=== PATIENT | male | born 1990 | race Caucasian/White ===

== ENCOUNTER 2023-06-08 13:23 | Emergency (ER) | payer OTHER ==
[2023-06-08 13:33] VITALS: RESP 16
[2023-06-08] MEDS ORDERED: KETOROLAC 15 MG/ML 1 ML VIAL IM STA (14:04)
--- NOTE | 2023-06-08 15:39 | US ---
EXAMINATION TYPE: US venous doppler duplex LE LT DATE OF EXAM: 06/08/2023 2:47 PM COMPARISON: NONE CLINICAL INDICATION: Male, 32 years old with history of calf pain; pt. shattered tib/fib 15+ years ag o SIDE PERFORMED: Left TECHNIQUE: The lower extremity deep venous system is examined utilizing real time linear array sonog qian with graded compression, doppler sonography and color-flow sonography. VESSELS IMAGED: Common Femoral Vein Deep Femoral Vein Greater Saphenous Vein * Femoral Vein Popliteal Vein Small Saphenous Vein * Proximal Calf Veins (* superficial vessels) Left Leg: Negative for DVT Tight Barrel Inspector notes: Lt. Anterior calf scanned near surgical scar and edema per PA request, no abnormal ities seen at the area of concern/pain. The muscle may be hyperemic IMPRESSION: 1. No evidence for DVT within the extremity imaged from the groin to the upper calf. 2. Additional targeted scanning along the anterior leg near the patient's surgical scar. This corresp onds to the area of pain and clinical concern. No discrete sonographic abnormality is seen of the sof t tissues in this region.
--- NOTE | 2023-06-08 16:03 | XR ---
EXAMINATION TYPE: XR tibia fibula LT DATE OF EXAM: 06/08/2023 CLINICAL HISTORY: pain TECHNIQUE: AP and lateral images of the left tibia and fibula are obtained. COMPARISON: None. FINDINGS: There is no acute fracture/dislocation evident. Tibial and fibular plate fixation noted. C ortical medullary lucency involving the distal tibial diaphysis is likely postsurgical/posttraumatic in nature. Chronic infection is not excluded. The joint spaces appear within normal limits. The ove rlying soft tissue appears unremarkable. IMPRESSION: There is no acute fracture or dislocation seen. Cortical medullary lucency involving the distal tibia l diaphysis is likely postsurgical/posttraumatic in nature. Chronic infection is not excluded.
--- NOTE | 2023-06-08 16:08 | ED ---
Extremity Problem HPI - General Chief complaint: Extremity Problem,Nontraumatic Stated complaint: lt leg pain Time Seen by Provider: 06/08/23 13:38 Source: patient Mode of arrival: wheelchair Limitations: no limitations - History of Present Illness Initial comments: Patient is a 32-year-old male who presents the emergency department for left leg pain. Patient states the pain started last night in the left arce. He does have some calf pain as well. He denies injury but does admit to being on his feet a lot at work. Patient does have history of surgery in this leg he has rods and pins. The surgery was 13 years ago at [facility]. Patient states he occasionally gets pain in this region it is a little worse today. He does have some swelling of the arce. Denies chest pain and shortness of breath. Denies history of DVT and PE. Denies hormone replacement, long car rides, airplane travel, surgical interventions, known cancers, family history of clotting, tobacco use. - Related Data Previous Rx's Medication Instructions Recorded Ibuprofen [Motrin] 800 mg PO Q8HR PRN #30 tab 06/08/23 Allergies Allergy/AdvReac Type Severity Reaction Status Date / Time No Known Allergies Allergy Verified 06/08/23 13:29 Review of Systems ROS Statement: Those systems with pertinent positive or pertinent negative responses have been documented in the HPI. ROS Other: All systems not noted in ROS Statement are negative. Past Medical History Past Medical History: Asthma History of Any Multi-Drug Resistant Organisms: None Reported Past Surgical History: Orthopedic Surgery Past Psychological History: No Psychological Hx Reported Smoking Status: Current every day smoker Past Alcohol Use History: None Reported Past Drug Use History: Marijuana General Exam Limitations: no limitations General appearance: alert, in no apparent distress Head exam: Present: atraumatic, normocephalic, normal inspection Respiratory exam: Present: normal lung sounds bilaterally. Absent: respiratory distress, wheezes, rales, rhonchi, stridor Cardiovascular Exam: Present: regular rate, normal rhythm, normal heart sounds. Absent: systolic murmur, diastolic murmur, rubs, gallop, clicks Left Knee exam: Present: normal inspection, full ROM. Absent: tenderness, swelling, effusion Lower Leg exam: Present: tenderness (calf), swelling (mild middle arce minimal fluctuance no overlying erythema, tenderness, blanching, warmth). Absent: abrasion, ecchymosis, deformity, crepitus, dislocation, erythema Ankle exam: Present: normal inspection, full ROM. Absent: tenderness, swelling Foot/Toe exam: Present: normal inspection, full ROM. Absent: tenderness, swelling Neurovascular tendon exam: Present: no vascular compromise Course Vital Signs 06/08/23 06/08/23 13:30 16:57 Temperature 98.5 F 97.9 F Pulse Rate 68 72 Respiratory 16 16 Rate Blood Pressure 115/77 120/76 O2 Sat by Pulse 97 97 Oximetry Medical Decision Making - Medical Decision Making Was pt. sent in by a medical professional or institution (, PA, HEALTH AND SAFETY COORDINATOR, urgent c are, hospital, or fdc...) When possible be specific @ -No Did you speak to anyone other than the patient for history (EMS, parent, family, police, friend...)? What history was obtained from this source @ -No Did you review nursing and triage notes (agree or disagree)? Why? @ -I reviewed and agree with nursing and triage notes Were old charts reviewed (outside hosp., previous admission, EMS record, old EKG, old radiological studies, urgent care reports/EKG's, fdc records)? Report findings @ -No old charts were reviewed Differential Diagnosis (chest pain, altered mental status, abdominal pain women, abdominal pain men, vaginal bleeding, weakness, fever, dyspnea, syncope, headache, dizziness, GI bleed, back pain, seizure, CVA, palpatations, mental health)? @ -DVT, cellulitis, abscess, post surgical complication. This list is not meant to be all inclusive EKG interpreted by me (3pts min.). @ -As above X-rays interpreted by me (1pt min.). @ -No acute fracture or dislocation. There is cortical medullary lucency involving the distal tibial diaphysis likely postsurgical/posttraumatic in nature CT interpreted by me (1pt min.). @ -None done U/S interpreted by me (1pt. min.). @No evidence of DVT. No discrete sonographic abnormality seen in surgical scar region What testing was considered but not performed or refused? (CT, X-rays, U/S, labs)? Why? @ -None What meds were considered but not given or refused? Why? @ -None Did you discuss the management of the patient with other professionals (professionals i.e. , PA, HEALTH AND SAFETY COORDINATOR, lab, RT, psych nurse, clinical social work aide, multiple drum sander helper, teacher, safety and security officer, casework manager)? Give summary @ -No Was smoking cessation discussed for >3mins.? @ -No Was critical care preformed (if so, how long)? @ -No Were there social determinants of health that impacted care today? How? (Homelessness, low income, unemployed, alcoholism, drug addiction, transportation, low edu. Level, literacy, decrease access to med. care, half-way, rehab)? @ -No Was there de-escalation of care discussed even if they declined (Discuss DNR or withdrawal of care, Hospice)? DNR status @ -No What co-morbidities impacted this encounter? (DM, HTN, Smoking, COPD, CAD, Cancer, CVA, ARF, Chemo, Hep., AIDS, mental health diagnosis, sleep apnea, morbid obesity)? @ -None Was patient admitted / discharged? Hospital course, mention meds given and route, prescriptions, significant lab abnormalities, going to OR and other pertinent info. @ -Patient presenting for pain and swelling in arce near old surgical scar. There is minimal fluctuance without overlying erythema, tenderness, blanching, warmth. He does have calf tenderness ultrasound obtained showing no evidence of DVT. There is no discrete sonographic abnormality seen in the surgical scar reason. X-ray was then obtained interpreted by myself showing cortical medullary lucency involving the distal tibial diaphysis likely postsurgical/posttraumatic in nature. Pain controlled. Results discussed with patient there is no evidence of fracture, or DVT. The presentation is not consistent with infection. Results discussed with patient. Patient to elevate and ice the leg at home. He is referred to medical authorization specialist but does not live in the area. He does not know his surgeon's name. He will need to follow up with local medical authorization specialist for further evaluation and management Undiagnosed new problem with uncertain prognosis? @ -No Drug Therapy requiring intensive monitoring for toxicity (Heparin, Nitro, Insulin, Cardizem)? @ -No Were any procedures done? @ -No Diagnosis/symptom? @ -left leg pain Acute, or Chronic, or Acute on Chronic? @ -Acute Uncomplicated (without systemic symptoms) or Complicated (systemic symptoms)? @ -Uncomplicated Side effects of treatment? @ -No Exacerbation, Progression, or Severe Exacerbation? @ -No Poses a threat to life or bodily function? How? (Chest pain, [place], [place], pneumonia, PE, COPD, DKA, ARF, appy, cholecystitis, CVA, Diverticulitis, Homicidal, Suicidal, threat to staff... and all critical care pts) @ -No Dr. Hall is my attending Disposition Clinical Impression: Left leg pain Disposition: HOME SELF-CARE Condition: Good Instructions (If sedation given, give patient instructions): P.R.I.C.E. Treatment (ED) Additional Instructions: Ice and elevate injury. Take Motrin as directed for pain. Specialist in 1-2 days. Return to the emergency department if you experience new, concerning, or worsening symptoms. Prescriptions: Ibuprofen [Motrin] 800 mg PO Q8HR PRN #30 tab PRN Reason: Pain Is patient prescribed a controlled substance at d/c from ED?: No Referrals: None,Stated [Primary Care Provider] - 1-2 days Galileo Tapia DO [Doctor of Osteopathic Medicine] - 1-2 days
[2023-06-08 16:58] VITALS: BP 120/76; PULSE 72; TEMP 97.9
== END 2023-06-08 17:16 | disposition home or self-care (01) ==
LOC: EC 13:23
DX: M79.605 Pain in left leg (principal); J45.909 Unspecified asthma, uncomplicated; F17.200 Nicotine dependence, unspecified, uncomplicated; F12.90 Cannabis use, unspecified, uncomplicated
CPT/HCPCS: 73590; 93971; 99284; 96372; J1885